=== PATIENT | male | born 1975 | race Caucasian/White ===

== ENCOUNTER 2018-10-06 17:04 | Outpatient (REF) | payer OTHER, SELFPAY ==
[2018-10-06 21:13] LABS: ALT 51 U/L (12-78); AST 25 U/L (15-37); Anion Gap 11.6 mmol/L (3-11); BUN 16 mg/dL (7-18); CO2 26.4 mmol/L (21.0-32.0); Calcium 9.1 mg/dL (8.5-10.1); Chloride 105 mmol/L (98-107); Glucose 89 mg/dL (70-100); Potassium 4.2 mmol/L (3.5-5.1); Sodium 143 mmol/L (136-145)
== END 2018-10-06 17:24 ==
LOC: NCHCN 17:04
PROVIDERS: PCP Nurse Practitioner; Visit Provider Nurse Practitioner Family
DX: K76.0 Fatty (change of) liver, not elsewhere classified (principal)
CPT/HCPCS: 80048; 84450; 84460

== ENCOUNTER 2021-01-16 03:05 | Outpatient (CLI) | payer OTHER, SELFPAY ==
[2021-01-16 11:37] LABS: Source Nasal/Nares
[2021-01-16 23:35] LABS: COVID-19 PCR Negative (Negative)
== END 2021-01-16 03:06 | disposition home or self-care (01) ==
LOC: LBO 03:05
PROVIDERS: PCP Nurse Practitioner Family; Visit Provider Urology
DX: Z20.822 Contact with and (suspected) exposure to COVID-19 (principal); Z01.818 Encounter for other preprocedural examination
CPT/HCPCS: 87635

== ENCOUNTER 2021-01-18 08:08 | Day surgery (SDC) | payer OTHER, SELFPAY ==
[2021-01-18] VITALS (8 sets, daily range): BP systolic 122–137; BP diastolic 85–103; PULSE 50–68; RESP 11–20; TEMP 36.5–36.7; O2SAT 98–99; BMI 27.8
--- NOTE | 2021-01-18 08:52 | W.ANESPRE ---
General Info Date of Service Date Performed: 01/18/21 Height: 5 ft 11 in Weight: 90.5 kg Body Mass Index (BMI): 27.8 Surgical Procedure: Operation Date: 01/18/21 09:40 Proposed Procedures Side Surgeon p Hydrocelectomy Left Sergei Whitney MD s Varicocelectomy ing approach Left Sergei Whitney MD Meds Allergies and Home Medications Allergies Allergy/AdvReac Type Severity Reaction Status Date / Time No Known Allergies Allergy Unverified 01/17/21 11:19 Home Medication Medication Instructions Recorded Unknown [No Known Home Meds] 11/14/20 Current Visit Medications: Current Medications Generic Name Dose Route Start Last Admin Trade Name Freq PRN Reason Stop Dose Admin Ringer's Solution 1,000 mls @ 80 mls/hr 01/18/21 06:00 IV 02/16/21 23:59 INFUSION JAMES Cefazolin Sodium/Dextrose 1 gm in 50 mls @ 100 mls/hr 01/18/21 06:00 Ancef Duplex IVPB 01/18/21 16:00 PREOP JAMES IV Miscellaneous Supplies 1 each 01/18/21 06:00 Iv Access IV 02/16/21 23:59 DIRECTED JAMES Sodium Chloride 0 ml 01/18/21 06:00 Normal Saline Flush 10 Ml Syr IV 02/16/21 23:59 PRN PRN Sodium Chloride 0 ml 01/18/21 06:00 Normal Saline 10 Ml Vial IJ 02/16/21 23:59 DIRECTED PRN Sterile Water 0 ml 01/18/21 06:00 Water,Injection,Sterile 10 Ml Vial IJ 02/16/21 23:59 DIRECTED PRN PFSH Active Problems Active Problems: Problem Status Onset Code Left hydrocele N43.3 Left varicocele I86.1 Medical History Medical History Left hydrocele Left varicocele Tobacco Smoking/Tobacco Use Status: Former Tobacco Use Alcohol Alcohol Intake: never Substance Use Substance use: Never Substance use type: does not use Vital Signs and Lab Results Vital Signs Most Recent Vital Signs in EMR: Most Recent Vital Signs Temp Pulse Resp BP Pulse Ox 36.7 C 68 16 124/85 99 01/18/21 08:20 01/18/21 08:20 01/18/21 08:20 01/18/21 08:20 01/18/21 08:20 Lab Results Blood Type / Crossmatch: No Data to Display Complete Blood Count: No Data to Display Complete Metabolic Panel: No Data to Display Liver Function Panel: No Data to Display Coagulation Panel: No Data to Display Cardiac Panel: No Data to Display Arterial Blood Gas: No Data to Display Venous Blood Gas: No Data to Display Pancreas Panel: No Data to Display Thyroid Panel: No Data to Display Infectious Disease: Coronavirus (COVID-19)(PCR) Negative (Negative) 01/16/21 08:36 01/16/21 Coronavirus 2019 Source Nasal/Nares 01/16/21 08:36 01/16/21 Blood Cultures: No Data to Display Toxicology Panel: No Data to Display Anesthesia Assessment and Plan Anesthesia History Personal History: No History of Anesthesia Complications and No History of General Anesthesia Family History: No Family History of Anesthesia Complications Exercise Tolerance Exercise Tolerance: Metabolic Equivalents>4 Pertinent Negatives Pertinent Negatives: No Symptoms of GERD, No Major Cardiovascular Symptoms or Complaints, No Major Pulmonary Symptoms or Complaints and No History of CVA/TIA Cardiac & Pulmonary Exam Cardiac Exam: Normal S1/S2 Heart Sounds Pulmonary Exam: Clear Bilateral Breath Sounds Airway Exam Known Difficult Airway: No Mallampati Class: 2 Mouth Opening: Normal (> 3cm) Thyromental Distance: Greater than 3 cm Neck Range of Motion: Full ROM Neck Circumference: Normal Teeth Condition: Normal Dentition ASA Classification ASA Score: ASA 2 Emergency Case?: No NPO Status NPO Status: NPO Clears >2 hours, Solids >8 hours Anesthesia Plan Resuscitation Status: Full Code Anesthesia Technique: General Anesthesia Airway Planned: LMA Monitors Used: Standard Monitors
--- NOTE | 2021-01-18 09:26 | HPE_ITS ---
Date of service: 01/18/21 Time of Service: 09:26 Assessment and Plan Assessment and plan (1) Left hydrocele: Status: Acute (2) Left varicocele: Status: Acute Assessment and plan: We will plan to address both of these issues through an inguinal approach. we discussed potential issues including bleeding, infection and injuries to testicular artery and nerve. History of Present Illness Narrative: This is a 45-year-old gentleman who has a known history of a left varicocele and left hydrocele. He believes these lesions are increasing in size and are becoming more uncomfortable. He is interested in having treatment for the lesions. He has not had any new trauma to the area. He has no overlying redness or bruising on the skin. Review of Systems Constitutional Comments: No fevers or chills No vision change or dysphasia No diabetes or thyroid dysfunction No shortness of breath, cough or hemoptysis No chest pain or palpitations No nausea, vomiting, hepatitis, ulcers, jaundice, diarrhea or constipation No seizures, strokes or peripheral neuropathy No bleeding disorders or anemia No gout [facility] Medical History Left hydrocele Left varicocele Social History Smoking/Tobacco Use Status: Former Tobacco Use Quit Date: 04/14/10 Smoking risk assessment performed?: Yes Alcohol Intake: never Drug use: Never Substance use type: does not use Do you feel safe at home: Yes Do you feel safe in your relationship?: Yes Meds Allergies and Home Medications Allergies Allergy/AdvReac Type Severity Reaction Status Date / Time No Known Allergies Allergy Unverified 01/17/21 11:19 Home Medications Medication Instructions Recorded Confirmed Type Unknown [No Known Home Meds] 11/14/20 01/17/21 History Exam Const General: cooperative and comfortable Neck Neck: supple Resp Effort & Inspection: normal respiratory effort Auscultation: clear to auscultation bilaterally Cardio Rate: regular rate Rhythm: regular rhythm GI Inspection: normal to inspection Palpation: soft Neuro General: patient alert, patient awake and patient oriented x3 Results Last Vital Signs Temp 36.7 C 01/18/21 08:20 Pulse 68 01/18/21 08:20 Resp 16 01/18/21 08:20 BP 124/85 01/18/21 08:20 Pulse Ox 99 01/18/21 08:20
[2021-01-18] MEDS: Lactated Ringers 1,000 ML 80 ML IV (09:31)
[2021-01-18] MEDS: ceFAZolin 1 GM/50 ML BAG IVPB (10:01)
[2021-01-18] MEDS: Bupivacaine 0.25% Pres-Free 30 ML VIAL (10:12)
[2021-01-18] MEDS: Bacitracin 30 GM TUBE (10:12)
--- NOTE | 2021-01-18 10:43 | PDOC.DSDIS_ITS ---
Discharge Plan Disposition Patient Disposition: HOME Condition: Stable Discharge Details Reason For Visit: hydrocele and varicocele Attending Provider: Sergei Whitney Primary Care Provider: Bailey Marks Home Meds and New Rx's Prescriptions: No Action No Known Home Meds RF: 0 Discharge Instructions Additional Instructions: No lifting over 10 pounds for 1 week, then no lifting over 20 pounds for elly tional 3 weeks Followup appt 2 to 4 weeks may use Ibuprofen up to 800 mg every 8 hours and tylenol 650 mg up to every 4 hours ice pack to scrotum prn Activity:: see above Remove Dressings/Wound Care:: 24 hours Shower/Bathe:: 24 hours Diet:: As Tolerated Discharge Orders Discharge Orders: Discharge Order (Routine); Ordered 01/18/21 Ordered By: Sergei Whitney DS: Diagnosis Discharge Diagnosis (1) Left hydrocele: Status: Acute (2) Left varicocele: Status: Acute
--- NOTE | 2021-01-18 10:46 | W.PM.OP ---
Date of service: 01/18/21 Time of Service: 10:46 Operative Note Operative Note DATE OF PROCEDURE: 01/18/21 PRE-OP DIAGNOSIS: Left hydrocele Left varicocele POST-OP DIAGNOSIS: same PROCEDURE: Left hydrocelectomy Left varicocelectomy SURGEON: Sergei Whitney ANESTHESIA TYPE: Local By Surgeon and General LMA/ETT Refer to Anesthesia Record ESTIMATED BLOOD LOSS: 25 PATHOLOGY: none sent COMPLICATIONS: None Patient was transported to: PACU Implants: none Indications: This is a 45-year-old gentleman who has a history of left-sided scrotal discomfort. On physical examination and on ultrasound, we identified both a hydrocele and varicocele. Because he is symptomatic, he would like to have both of these issues addressed at once. We have elected to perform hydrocelectomy and varicocelectomy both through an inguinal approach rather than use 2 different incisions or a scrotal approach. Findings: Moderate size left hydrocele Multiple dilated spermatic veins Procedure Description: Patient was brought to the operating room on 01/18/2021. He was given preoperative antibiotics. After successful induction of general anesthesia, he was placed in the dorsal lithotomy position. His genitalia and lower abdomen were prepped and draped sterilely. We began by making a left inguinal incision and extended the incision down until the aponeurosis of the external oblique was identified. The aponeurosis was opened in the direction of the fibers. The spermatic cord was then identified. We located the ilioinguinal nerve and dissected it free from the remainder of the cord. The nerve was reflected inferiorly out of our line of dissection. The testis was then delivered up through the external inguinal ring into our surgical field. The spermatic cord was secured with a Merline drain. Numerous enlarged blood vessels were found along the tunica vaginalis. These were dissected free using sharp and blunt dissection. Eventually, we came down to the tunica vaginalis alone. The tunica was opened on the anterior aspect of the testis and a moderate amount of clear fluid was drained. The tunica was then everted behind the testis and the mucosal edges were reapproximated using simple interrupted 2-0 chromic sutures. We then turned our attention to the spermatic cord. Beginning our prior dissection on the anterior aspect, we used sharp and blunt dissection to identify a total of 3 dilated veins. Each of the veins was secured with a right angle and divided between 3-0 silk ties. Once hemostasis had been obtained, the testis was delivered back within the left hemiscrotum. the testis appeared pink and viable. The aponeurosis of the external oblique was reapproximated with a segment of running 3-0 Vicryl suture. The wound was irrigated with saline. The skin edges were reapproximated with a subcuticular 4-0 Vicryl suture. The patient tolerated the procedure well with no complications.
[2021-01-18] MEDS: HYDROmorphone 2 MG/ML VIAL IVP (11:11)
[2021-01-18] MEDS: Normal Saline 10 ML VIAL IJ (11:11)
--- NOTE | 2021-01-18 11:35 | W.ANESPOSTOP ---
Postoperative Evaluation Date, Time and Location Date Performed: 01/18/21 Time Performed: 11:35 Patient Location: PACU Vital Signs Most Recent Imported Vital Signs: Most Recent Vital Signs Temp Pulse Resp BP Pulse Ox 36.6 C 58 L 17 130/91 H 98 01/18/21 11:28 01/18/21 11:28 01/18/21 11:28 01/18/21 11:28 01/18/21 11:28 Pain Score Most Recent Pain Score: Most Recent Pain Score Pain Level 3 01/18/21 11:28 Assessment Mental Status: Awake (Alert & Oriented to Patient Baseline) Airway and Respiratory Function: Patent airway with normal (patient baseline) respiratory exam Cardiovascular Function: Hemodynamically Stable Hydration Status: Adequately Hydrated Nausea & Vomiting: No Nausea or Vomiting Pain: Pain is tolerable per patient Peripheral Nerve Block: Patient did not receive a nerve block
== END 2021-01-18 12:49 | disposition home or self-care (01) ==
PROVIDERS: PCP Nurse Practitioner Family; Visit Provider Urology
PROC: (CPT 55040; principal; 2021-01-18 09:30)
PROC: (CPT 55040; 2021-01-18 09:30)
DX: N43.3 Hydrocele, unspecified (principal); I86.1 Scrotal varices
CPT/HCPCS: 55040; 55530; J0690; J1100; J1885; J2001; J2405

== ENCOUNTER 2022-01-02 08:59 | Outpatient (REF) | payer OTHER, SELFPAY ==
[2022-01-02 15:45] LABS: HCT 45.6 % (40.0-50.0); HGB 15.8 g/dL (13.5-17.5); MCH 30.6 pg (27.0-33.0); MCHC 34.6 % (32.0-36.0); MCV 88 fL (80-95); MPV 9.1 fL (8.0-11.0); Platelet Count 289 10^3/uL (130-400); RBC 5.17 10^6/uL (4.36-5.78); RDW 12.3 % (11.8-14.1); RDW-SD 39.8 fL
[2022-01-02 16:06] LABS: ALT 73 U/L (16-63); AST 32 U/L (15-37); Albumin 4.7 g/dL (3.4-5.0); Alkaline Phosphatase 85 U/L (46-116); Anion Gap 12.1 mmol/L (3-11); BUN 19 mg/dL (7-18); Bilirubin, Total 0.7 mg/dL (0.2-1.0); CO2 26.9 mmol/L (21.0-32.0); CREATININE 1.2 mg/dL (0.70-1.30); Calcium 9.3 mg/dL (8.5-10.1); Calculated LDL 171 mg/dL (<100); Chloride 102 mmol/L (98-107); Cholesterol 249 mg/dL (<200); Glucose 105 mg/dL (74-106); HDL Cholesterol 52 mg/dL (40-60); Potassium 3.9 mmol/L (3.5-5.1); Sodium 141 mmol/L (136-145); TSH 0.61 uIU/mL (0.36-3.74); Triglyceride 133 mg/dL (<150)
== END 2022-01-02 09:00 | disposition home or self-care (01) ==
LOC: NCHCN 08:59
PROVIDERS: PCP Nurse Practitioner Family; Visit Provider Nurse Practitioner Family
DX: Z00.00 Encounter for general adult medical examination without abnormal findings (principal); Z13.220 Encounter for screening for lipoid disorders; Z13.29 Encounter for screening for other suspected endocrine disorder
CPT/HCPCS: 80053; 80061; 85027; 84443

== ENCOUNTER 2023-01-10 11:19 | Outpatient (REF) | payer BC, SELFPAY ==
[2023-01-10 13:41] LABS: HGB 15.8 g/dL (13.5-17.5); MCH 30.1 pg (27.0-33.0); MCHC 34.3 % (32.0-36.0); MCV 88 fL (80-95); MPV 8.8 fL (8.0-11.0); Platelet Count 320 10^3/uL (130-400); RBC 5.25 10^6/uL (4.36-5.78); RDW 12.1 % (11.8-14.1); RDW-SD 38.7 fL; WBC 5.42 10^3/uL (4.4-10.8)
[2023-01-10 14:05] LABS: Hemoglobin A1C 5.2 % (<5.7)
[2023-01-10 14:13] LABS: ALT 49 U/L (16-63); AST 23 U/L (15-37); Albumin 4.6 g/dL (3.4-5.0); Alkaline Phosphatase 73 U/L (46-116); Anion Gap 11.1 mmol/L (3-11); BUN 19 mg/dL (7-18); Bilirubin, Total 1.1 mg/dL (0.2-1.0); CO2 26.9 mmol/L (21.0-32.0); CREATININE 1.1 mg/dL (0.70-1.30); Calcium 9.6 mg/dL (8.5-10.1); Calculated LDL 151 mg/dL (<100); Chloride 102 mmol/L (98-107); Cholesterol 239 mg/dL (<200); Estimated GFR 83.84 (mL/min/1.73m2); Glucose 93 mg/dL (74-106); HDL Cholesterol 58 mg/dL (40-60); Potassium 4.3 mmol/L (3.5-5.1); Sodium 140 mmol/L (136-145); Triglyceride 152 mg/dL (<150)
== END 2023-01-10 11:20 | disposition home or self-care (01) ==
LOC: NCHCN 11:19
PROVIDERS: PCP Nurse Practitioner Family; Visit Provider Nurse Practitioner Family
DX: Z00.00 Encounter for general adult medical examination without abnormal findings (principal); Z13.1 Encounter for screening for diabetes mellitus; Z13.0 Encounter for screening for diseases of the blood and blood-forming organs and certain disorders involving the immune mechanism; Z13.220 Encounter for screening for lipoid disorders; Z13.228 Encounter for screening for other metabolic disorders
CPT/HCPCS: 80053; 80061; 85027; 83036